=== PATIENT | female | born 1960 | race African-American/Black ===

== ENCOUNTER 2016-06-29 09:44 | Observation (INO) | payer OTHER ==
[2016-06-24 10:36] LABS: HEMATOCRIT 35.4 % (36.0-48.0); HEMOGLOBIN 11.6 g/dL (12.0-16.0)
[2016-06-24 10:48] LABS: BUN (BLOOD UREA NITROGEN) 16 MG/DL (6-23); CALCIUM, SERUM 8.8 MG/DL (8.5-10.4); CHLORIDE, SERUM 107 MMOL/L (96-112); CO2 (CARBON DIOXIDE) 30 MMOL/L (24-34); CREATININE 0.67 MG/DL (0.55-1.02); GFR AFRICAN AMERICAN 114 ML/MIN (>=60); GFR NON AFRICAN AMERICAN 98 ML/MIN (>=60); GLUCOSE, SERUM 103 MG/DL (60-99); POTASSIUM, SERUM 4.3 MMOL/L (3.5-5.3); SODIUM, SERUM 145 MMOL/L (135-148)
--- NOTE | ~2016-06-29 | OP ---
Record Of Operation [facility] [address] [place]. [address] NAME: YANETH ROSS : 58 STATUS : DIS Kmi PAT#: [id number] AGE: 55 ADM/REG DATE : 06/29/16 MR#: [id number] REPORT SERV DATE: 07/02/16 DICTATED BY: MACKENZIE HERNANDEZ II DATE: 07/02/16 REPORT STATUS : Draft TRANSCRIBED BY: MODL DATE: 07/02/16 DATE OF PROCEDURE: 06/29/2016 PREOPERATIVE DIAGNOSES: 1. Mild spondylolisthesis at L4-L5 without instability. 2. L3-4, L4-5 stenosis. 3. Left hip osteoarthritis. 4. Left lower extremity radiculopathy. POSTOPERATIVE DIAGNOSES: 1. Mild spondylolisthesis at L4-L5 without instability. 2. L3-4, L4-5 stenosis. 3. Left hip osteoarthritis. 4. Left lower extremity radiculopathy. PROCEDURE: 1. Lumbar laminectomy, L3-4, L4-5. 2. Use of the microscope and stereotactic spinal imaging. SURGEON: Mackenzie Hernandez M.D. FLUIDS: 800 mL LR. ESTIMATED BLOOD LOSS: 20 mL. DRAIN: One drain. COMPLICATIONS: None. ANTIBIOTIC: Preoperatively. PREOPERATIVE HISTORY: This is a very friendly 55-year-old female, who reports significant pain radiating into the left buttock and into the posterior thigh. The epidural steroid injection gave her significant relief, but only for a week. She also does have some pain with rotation of the left hip, as she told me in preoperative holding, she also had some groin pain. I evaluated her with a log roll maneuver and she did have some reproduction of her anterior groin pain, but not her posterior buttock pain. We discussed the fact that she seemingly had two different issues which was the diagnosis of lumbar spinal stenosis, as well as left hip osteoarthritis after I looked at her films once again. There was some moderate disk space narrowing. We discussed the surgery again and answered all of her questions appropriately. I discussed with her that if the groin pain continued I would recommend she see her orthopedist. DESCRIPTION OF PROCEDURE: After informed consent was obtained, the patient was brought to the operating room at her request, and general anesthesia was achieved. She was placed in the prone position and the back was prepped and draped in a sterile fashion. The Record Of Operation [facility] [address] [place]. [address] NAME: YANETH ROSS : 58 STATUS : DIS Kim PAT#: [id number] AGE: 55 ADM/REG DATE : 06/29/16 MR#: [id number] REPORT SERV DATE: 07/02/16 DICTATED BY: MACKENZIE HERNANDEZ II DATE: 07/02/16 REPORT STATUS : Draft TRANSCRIBED BY: DENNISE DATE: 07/02/16 stereotactic spinal pin was placed into the right iliac crest and the intraoperative CT scan completed. The minimally invasive retractor was placed following completion of the intraoperative CT scan. Stereotactic guidance was used throughout the case. Next, the microscope was brought into place and under microscopic visualization, the L3-4 and L4-5 interspaces were identified. The facet capsules were maintained. The facet arthrosis was significant especially at L4-5. The CT scan also showed the significant osteoarthritis involving the facet joint. At this point, with the microscope now in place, the spinal laminar junction was taken down, including a partial facetectomy at L3-4. The central canal was now well decompressed. The unilateral approach allowed adequate access to both recesses. The ligamentum flavum was removed and the dura well decompressed bilaterally. Next, the L4-5 level was then also addressed. The stenosis was more severe at this level. The central canal was once again taken down via the spinal laminar junction. The unilateral approach was exploited to decompress both recesses. The significant ligamentum flavum was removed. The L5 nerve roots were now well decompressed with additional removal of facet. The L4 nerve roots did not exhibit significant stenosis in the foraminal zone. At this point, the wound was irrigated followed by confirmation of hemostasis. However, there was some mild cancellous bone bleeding for which a deep drain was placed. Standard closure was performed and the patient was extubated and transferred to PACU in stable condition. The plan will be for overnight observation and activities as tolerated except for no heavy lifting for the next month. SOFÍA/DENNISE Mackenzie Hernandez II, M.D. / [id number] CC: Gabe Dai II, MICHALLE B
[~2016-06-29 09:44] MED LIST: FISH OIL1200 MG PO; IBU800 PO; NEUR300 PO
[2016-06-30] MEDS ORDERED: PCET PO (07:55)
[2016-06-30] MEDS ORDERED: V2 PO (07:55)
== END 2016-06-30 18:47 | disposition home or self-care (01) ==
LOC: SDC 09:44 → 3SO 16:12
PROVIDERS: Orthopaedic Surgery
PROC: 01NB0ZZ Release Lumbar Nerve, Open Approach (ICD-10-PCS; principal; 2016-06-29 11:45)
DX: M48.06 Spinal stenosis, lumbar region (principal); M47.26 Other spondylosis with radiculopathy, lumbar region; M16.12 Unilateral primary osteoarthritis, left hip; E66.9 Obesity, unspecified; Z68.41 Body mass index [BMI] 40.0-44.9, adult; E11.9 Type 2 diabetes mellitus without complications; Z90.710 Acquired absence of both cervix and uterus; Z96.652 Presence of left artificial knee joint; Z88.8 Allergy status to other drugs, medicaments and biological substances; Z98.890 Other specified postprocedural states
CPT/HCPCS: 80048; 82962; 85014; 85018; 88304; 88311; 93005; 96374; 96375; 96376; 97116-GP; 97161-GP; A9270-GY; G0378; J0690; J1030; J1170; J2250; J2405; J2710; J3010